=== PATIENT | male | born 1960 | race Caucasian/White ===

== ENCOUNTER 2020-11-10 17:42 | Emergency (ER) | payer OTHER ==
[2020-11-10 20:10] LABS: HEMOGLOBIN 17.1 gm/dl (14.0-17.5); RED BLOOD COUNT 5.53 M/UL (4.20-5.50); WHITE BLOOD COUNT 8.2 K/UL (4.5-11.0)
[2020-11-10 20:29] LABS: BUN/CREATININE RATIO 17 (0-10)
[2020-11-10] MEDS ORDERED: GLUCOPHAGE 500500 MG PO (20:59)
== END 2020-11-10 22:55 | disposition home or self-care (01) ==
LOC: ER1 17:42
PROVIDERS: Emergency Medicine
DX: E11.65 Type 2 diabetes mellitus with hyperglycemia (principal)
CPT/HCPCS: 36415; 80053; 82550; 82553; 82803; 82962; 83735; 83874; 84100; 84484; 85025; 93005; 99285

== ENCOUNTER 2021-08-03 22:21 | Emergency (ER) | payer OTHER ==
[~2021-08-03 22:21] MED LIST: GLUCOPHAGE 500500 MG PO
[2021-08-04] MEDS ORDERED: NORFLEX 100 MG100 MG PO (01:41)
[2021-08-04] MEDS ORDERED: LODINE CAP 300300 MG PO (01:41)
== END 2021-08-04 01:47 | disposition home or self-care (01) ==
LOC: ER1 22:21
DX: M54.50 Low back pain, unspecified (principal); M54.6 Pain in thoracic spine; E11.9 Type 2 diabetes mellitus without complications
CPT/HCPCS: 72125; 72128; 72131; 96374; 96375; 99283; J1100; J1885; J2360